=== PATIENT | female | born 1970 | race Caucasian/White ===

== ENCOUNTER 2022-01-17 10:22 | Emergency (ER) | payer MEDICAID, OTHER ==
[~2022-01-17] VITALS: Ht 167.6 cm; Wt 127.0 kg
[2022-01-17 10:24] VITALS: BP 208/137
[2022-01-17] MEDS ORDERED: cloNIDine HCL 0.1 MG TAB PO ONE ×2 (10:45)
[2022-01-17] MEDS ORDERED: METOPROLOL TARTRATE 50 MG TAB PO ONE (11:15)
== END 2022-01-17 11:50 | disposition left against medical advice (07) ==
LOC: ER 10:22
DX: I16.0 Hypertensive urgency (principal); E11.9 Type 2 diabetes mellitus without complications

== ENCOUNTER 2023-02-22 14:36 | Emergency (ER) | payer MEDICAID ==
[~2023-02-22] VITALS: Ht 167.6 cm; Wt 150.0 kg
[2023-02-22] MEDS ORDERED: hydrALAZINE HCL 20 MG/ML VL IV ONE (15:00)
[2023-02-22 15:47] LABS: Basophils # (auto) 0.1 10 ^3/uL (0-0.2); Eosinophils # (auto) 0.3 10 ^3/uL (0-0.8); Eosinophils % (auto) 2.7 % (0.0-7.0); Hematocrit 40.9 % (36.0-46.0); Hemoglobin 13.1 g/dL (12.2-16.2); Lymphocytes # (auto) 2.3 10 ^3/uL (0.4-5.4); Lymphocytes % (auto) 22.7 % (10.0-50.0); Mean Corpuscular Hemoglobin 29.1 pg (28.0-32.0); Mean Corpuscular Hgb Conc. 32.1 g/dL (32.0-36.0); Mean Corpuscular Volume 90.6 fL (80.0-100.0); Monocytes # (auto) 0.9 10 ^3/uL (0-1.3); Neutrophils # (auto) 6.5 10 ^3/uL (1.6-8.6); Neutrophils % (auto) 64.6 % (37.0-80.0); Nucleated Red Blood Cells % 0.1 %; Red Blood Cells 4.51 10^6/uL (4.0-5.20)
[2023-02-22 16:08] LABS: Alanine Aminotransferase 50 U/L (7-40); Albumin 3.9 g/dL (3.2-4.8); Alkaline Phosphatase 126 U/L (46-116); Anion Gap 8 (5-15); Aspartate Aminotransferase 37 U/L (13-40); BUN/Creatinine Ratio 18.9 (10.0-20.0); Bilirubin, Total 0.3 mg/dL (0.2-1.0); Blood Urea Nitrogen 27 mg/dL (9-23); Carbon Dioxide 26 mmol/L (20-30); Chloride 105 mmol/L (98-107); Glucose 199 mg/dL (74-106); Lipase 57 U/L (12-53); Potassium 3.4 mmol/L (3.5-5.1); Sodium 139 mmol/L (136-145); Total Protein 7.1 g/dL (5.7-8.2)
[2023-02-22 20:49] LABS: Urine Bacteria FEW /hpf (None Seen); Urine Blood 1+ /uL (Negative); Urine Clarity Clear (Clear); Urine Color Yellow (Yellow); Urine Hyaline Cast FEW /lpf (0 - 2); Urine Protein, UAD 2+ (Negative); Urine Specific Gravity 1.025 (1.001-1.035); Urine Urobilinogen Normal (Negative); Urine WBC 3 /hpf (0 - 5); Urine pH 5.5 (5.0-8.0)
[2023-02-22 21:15] VITALS: BP 190/129; PULSE 92; RESP 20; TEMP 98.1; O2SAT 95
[2023-02-22] MEDS ORDERED: cloNIDine HCL 0.1 MG TAB PO ONE ×2 (21:30→23:30)
== END 2023-02-22 23:39 | disposition left against medical advice (07) ==
LOC: ER 14:36
DX: I16.1 Hypertensive emergency (principal); G51.0 Bell's palsy; N17.8 Other acute kidney failure; E11.65 Type 2 diabetes mellitus with hyperglycemia; F17.210 Nicotine dependence, cigarettes, uncomplicated; R06.02 Shortness of breath; Z98.890 Other specified postprocedural states
CPT/HCPCS: 36415; 70450; 71045; 80053; 81001; 82962; 83690; 83880; 84484; 85025; 93005